=== PATIENT | male | born 1995 | race Asian ===

== ENCOUNTER 2017-01-02 11:50 | Emergency (ER) | payer OTHER ==
[~2017-01-02] VITALS: Ht 170.2 cm; Wt 86.2 kg
[2017-01-02 13:40] VITALS: BP 166/76; TEMP 98.1
== END 2017-01-02 13:40 | disposition home or self-care (01) ==
LOC: ED 11:50
DX: S70.351A Superficial foreign body, right thigh, initial encounter (principal); W34.010A Accidental discharge of airgun, initial encounter; Y92.828 Other wilderness area as the place of occurrence of the external cause
CPT/HCPCS: 90715; 99282